=== PATIENT | female | born 1945 | race Caucasian/White ===

== ENCOUNTER 2016-11-04 21:52 | Emergency (ER) | payer OTHER, MEDICARE ==
--- NOTE | 2016-11-04 22:10 | PDOC ---
History of Present Illness - General Chief Complaint: Injury Stated Complaint: LEFT ANKLE SWELLING/ FALL Time Seen by Provider: 11/04/16 22:07 - History of Present Illness Initial Comments: 11/05/16 01:05 Chief complaint: Injury to the left ankle and foot History of present illness: Patient was walking in a restaurant, inverted her left ankle, was prevented from falling by her , who supported her. She complains of pain in the lateral foot and ankle, denies falling, denies any other injuries. She is ambulating but with considerable difficulty and pain Physical exam reveals point tenderness over the lateral malleolus, with swelling of the anterolateral ankle ligaments and point tenderness over the fifth metatarsal as well. There is no deformity or instability of the ankle or foot. Pulses are full. No distal sensory or motor deficits. No sign of injury to the calf knee or hip Impression: Sprain rule out fracture Plan: X-ray and further orthopedic management depending on results Past History - Past Medical History Allergies/Adverse Reactions: Allergies Allergy/AdvReac Type Severity Reaction Status Date / Time nitrofurantoin Allergy Hives Verified 11/04/16 23:18 [From Macrobid] nitrofurantoin Allergy Hives Verified 11/04/16 23:18 macrocrystalline [From Macrobid] Home Medications: Ambulatory Orders Fluoxetine HCl [Prozac] 20 mg PO DAILY 01/02/16 Furosemide [Lasix -] 20 mg PO DAILY 01/02/16 Pantoprazole Sodium 40 mg PO DAILY 01/02/16 Celecoxib [Celebrex] 200 mg PO DAILY #0 01/03/16 Anemia: No Asthma: No Cancer: No Cardiac Disorders: No CVA: No COPD: No CHF: No Dementia: No Diabetes: No GI Disorders: No Disorders: No HTN: No Hypercholesterolemia: No Liver Disease: No Seizures: No Thyroid Disease: No - Surgical History Abdominal Surgery: Yes (Umbilical Hernia Repair) Appendectomy: Yes Cardiac Surgery: No Cholecystectomy: No Lung Surgery: No Neurologic Surgery: No Orthopedic Surgery: No - Psycho/Social/Smoking Cessation Hx Smoking History: Never smoked Hx Alcohol Use: No Drug/Substance Use Hx: No Substance Use Type: None Hx Substance Use Treatment: No Medical Decision Making - Medical Decision Making 11/04/16 22:40 X-ray reveals an incomplete fracture of the distal fibula. No deformity or displacement. Fifth metatarsal is intact. Medial and posterior malleoli are intact Patient declines crutches. She has a cane at home which she will use. She will follow-up with her orthopedist at [facility] as directed within 1 week.. She is advised to postpone having her skin cancer of the left dubois removed until her swelling resolves and her injury is well-healed. A Rolon dressing was applied to the foot and ankle, and she was fitted with a cast shoe. She was able to ambulate with the assistance of her . Rest ice and elevation are recommended, with partial weightbearing as the pain subsides. She is ambulating adequately in the company of her discharged in minimal pain to follow-up as directed 11/05/16 01:07 *DC/Admit/Observation/Transfer Diagnosis at time of Disposition: Fracture of distal fibula Qualifiers: Encounter type: initial encounter Fracture type: closed Fracture morphology: other fracture Laterality: left Qualified Code(s): S82.832A - Other fracture of upper and lower end of left fibula, initial encounter for closed fracture - Discharge Dispostion Disposition: HOME Condition at time of disposition: Improved Admit: No - Referrals Referrals: STAFF,NOT ON [Primary Care Provider] - - Patient Instructions Printed Discharge Instructions: DI for Ankle Fracture Additional Instructions: Rest, ice, and elevate. Tylenol or Motrin for pain. See your orthopedist Dr. Navarro for further evaluation and treatment within 1 week. Consider postponing skin cancer surgery until your injury is healed and the swelling has resolved.
[2016-11-04 22:32] VITALS: BP 138/67; PULSE 78; TEMP 98.3; BMI 29.2
== END 2016-11-04 23:31 | disposition home or self-care (01) ==
LOC: FER 21:52
DX: S82.832A Other fracture of upper and lower end of left fibula, initial encounter for closed fracture (principal); X58.XXXA Exposure to other specified factors, initial encounter; Y93.89 Activity, other specified; Y92.511 Restaurant or cafe as the place of occurrence of the external cause
CPT/HCPCS: 73610-TC-LT; 73630-TC-LT; 99281-25

== ENCOUNTER 2020-11-29 15:00 | Emergency (ER) | payer OTHER, MEDICARE ==
[2020-11-29 15:15] VITALS: BP 157/86; PULSE 85; TEMP 97.8; BMI 31.1
[2020-11-29] MEDS ORDERED: LIDOCAINE HCL 1%, 10 MG/ML (20ML VIAL) ONE (16:23)
[2020-11-29] MEDS ORDERED: LIDOCAINE HCL 1%, 10 MG/ML (50 mL VIAL) SQ ONE (16:23)
== END 2020-11-29 16:40 | disposition home or self-care (01) ==
LOC: FER 15:00
PROC: 0HQKXZZ Repair Right Lower Leg Skin, External Approach (ICD-10-PCS; principal; 2020-11-29)
DX: S81.811A Laceration without foreign body, right lower leg, initial encounter (principal); W25.XXXA Contact with sharp glass, initial encounter; Y92.9 Unspecified place or not applicable
CPT/HCPCS: 12001-25; 73590-TC-RT-FY; 99284-25

== ENCOUNTER 2023-08-07 13:00 | Emergency (ER) | payer OTHER, MEDICARE ==
[2023-08-07 13:49] VITALS: BP 172/90; PULSE 87; RESP 20; TEMP 98.8; BMI 35.0
== END 2023-08-07 15:05 | disposition home or self-care (01) ==
LOC: FER 13:00
DX: M25.531 Pain in right wrist (principal); M25.561 Pain in right knee; V03.10XA Pedestrian on foot injured in collision with car, pick-up truck or van in traffic accident, initial encounter
CPT/HCPCS: 73110-TC-RT-FY; 73130-TC-RT-FY; 73562-TC-RT-FY; 99284-25